=== PATIENT | female | born 1995 | race African-American/Black ===

== ENCOUNTER 2017-01-10 13:30 | Emergency (ER) | payer MEDICAID ==
[~2017-01-10] VITALS: Ht 157.5 cm; Wt 90.0 kg
[~2017-01-10 13:30] MED LIST: AVIATAB PO; FLUC150T PO; METR-1 PO; TERC.4%V VAGINAL
[2017-01-10 13:32] VITALS: BP 128/74; PULSE 106; RESP 14; TEMP 98.4; O2SAT 99
[2017-01-10] MEDS ORDERED: SODIUM CHLOR 0.9% 1000 ML INJ 1,000 ML IV ONE (16:32)
--- NOTE | 2017-01-10 16:40 | PD ---
HPI Chief Complaint: Related Problem Time Seen by Provider: 16:22 Travel History International Travel<30 days: No Contact w/Intl Traveler<30days: No Traveled to known affect area: No History of Present Illness HPI 21-year-old female who is currently 13 weeks presents to emergency department for evaluation of vaginal bleeding and abdominal cramping since last night. Patient describes the bleeding as "spotting" which has resolved since last night. She reports abdominal pain as "cramping" which has since resolved. Patient is followed by B[facility]AGE MAK[facility] Dr. Mancilla on Tuesday she had an ultrasound confirming IUP dating 13 weeks. [facility] Past Medical History Medical History: Denies Significant Hx Hx Anticoagulant Therapy: No Cancer: No Cardiovascular Problems: No Chemotherapy: No Cerebrovascular Accident: No Diabetes: No Glaucoma: No Hepatitis: No Hiatal Hernia: No Hypertension: No Respiratory: No Immunizations Current: Yes Thyroid Disease: No ?: LMP: 08/03/2016 Past Surgical History Hysterectomy: No Pacemaker: No Tonsillectomy: Yes (2009) Other Surgery: No Social History Alcohol Use: No Tobacco Use: No Substance Use: No Allergies-Medications (Allergen,Severity, Reaction): Coded Allergies: No Known Allergies (Unverified , 07/19/16) Reported Meds & Prescriptions Reported Meds & Active Scripts Active Fluconazole 150 Mg Tab 150 Mg PO ONCE Terazol 7 Vaginal Cream (Terconazole Vaginal Cream) 0.4 % Cream 1 Appl VAGINAL HS 1 applicatorful intravaginally x 7 nights Aviane (Levonorgestrel-Ethinyl Estradiol) 0.1-20 Mg-Mcg Tab 1 Tab PO DAILY Flagyl (Metronidazole) 500 Mg Tab 500 Mg PO BID Review of Systems Except as stated in HPI: all other systems reviewed are Neg General / Constitutional: No: Fever Eyes: No: Visual changes HENT: No: Headaches Cardiovascular: No: Chest Pain or Discomfort Respiratory: No: Shortness of Breath Physical Exam Narrative GENERAL: Alert, well-appearing female in no acute distress. Patient resting comfortably on stretcher requesting something to eat. SKIN: Focused skin assessment warm/dry. HEAD: Atraumatic. Normocephalic. EYES: Pupils equal and round. No scleral icterus. No injection or drainage. ENT: No nasal bleeding or discharge. Mucous membranes pink and moist. NECK: Trachea midline. No JVD. CARDIOVASCULAR: Regular rate and rhythm. No murmur appreciated. RESPIRATORY: No accessory muscle use. Clear to auscultation. Breath sounds equal bilaterally. GASTROINTESTINAL: Abdomen soft, non-tender, nondistended. Hepatic and splenic margins not palpable. MUSCULOSKELETAL: No obvious deformities. No clubbing. No cyanosis. No edema. : External genitalia without lesions. cottage cheese like discharge within the vault. cerivcal os closed. No bleeding or clots. NEUROLOGICAL: Awake and alert. No obvious cranial nerve deficits. Motor grossly within normal limits. Normal speech. PSYCHIATRIC: Appropriate mood and affect; insight and judgment normal. Data Data Last Documented VS Vital Signs Date Time Temp Pulse Resp B/P (MAP) Pulse Ox O2 Delivery O2 Flow Rate FiO2 01/10/17 13:32 98.4 106 14 128/74 (92) 99 Orders Orders Sodium Chlor 0.9% 1000 Ml Inj (Ns 1000 M (01/10/17 16:32) Ondansetron Inj (Zofran Inj) (01/10/17 16:45) Urinalysis - C+S If Indicated (01/10/17 17:39) Wet Prep Profile (01/10/17 17:39) Labs Laboratory Tests Test 01/10/17 17:10 01/10/17 17:45 Urine Color YELLOW Urine Turbidity HAZY Urine pH 5.5 Urine Specific [place] 1.016 Urine Protein NEG mg/dL Urine Glucose (UA) NEG mg/dL Urine Ketones NEG mg/dL Urine Occult Blood NEG Urine Nitrite NEG Urine Bilirubin NEG Urine Urobilinogen LESS THAN 2.0 MG/DL Urine Leukocyte Esterase SMALL Urine RBC 1 /hpf Urine WBC 4 /hpf Urine Squamous Epithelial Cells 1 /hpf Urine Bacteria FEW /hpf Urine Mucus FEW /lpf Microscopic Urinalysis Comment CULT NOT INDICATED Clue Cells (Wet Prep) NONE SEEN Vaginal Trichomonas (Wet Prep) NONE SEEN Vaginal Yeast (Wet Prep) NONE SEEN MDM Medical Decision Making Medical Screen Exam Complete: Yes Emergency Medical Condition: Yes Differential Diagnosis Threatened , missed , vaginal bleeding in , cervicitis , vaginal candidiasis Narrative Course 21 year old female here for evaluation of mild vaginal bleeding & cramping last night. Patient reports symptoms have resolved but she was urged by her partner to seek evaluation today. On exam patient's abdomen is soft and nontender. Pelvic exam was performed which small amount of white discharge within the vaginal vault. Cervical os is closed without bleeding or clots. UA: Positive bacteria Wet prep: Negative for Trichomonas, clue cells, yeast heart tones: Bedside ultrasound performed by MAJO Escobar with heart tone of 148. Patient be treated for bacteriuria in with Macrobid. She was advised on pelvic rest. She was advised to follow-up with her [facility]AGE [facility]ER this week. Diagnosis Primary Impression: Asymptomatic bacteriuria during Additional Impression: Vaginal bleeding in Referrals: Wheel Cleaner Additional Instructions: Take the antibiotics as prescribed. Pelvic rest which includes no vaginal intercourse. Follow-up with your B[facility]AGE [facility]ER this week. Return to emergency department if he developed new or worsening symptoms. Scripts Nitrofurantoin Monohydrate Macrocrystals (Macrobid) 100 Mg Cap 100 MG PO BID for Infection for 5 Days, #10 CAP 0 Refills Prov: Diamante Pickett 01/10/17 Disposition: 01 DISCHARGE HOME Condition: Stable Diamante Pickett Jan 10, 2017 16:40
[2017-01-10] MEDS ORDERED: ONDANSETRON HCL 4 MG/2 ML VIAL IVP ONE (16:45)
[2017-01-10 17:59] LABS: BACTERIA, URINE FEW /hpf; BLOOD, URINE NEG (NEG); COMMENT (UR) CULT NOT INDICATED; CULTURE IF INDICATED CULT NOT INDICATED; GLUCOSE,URINE NEG (NEG); KETONE, URINE NEG (NEG); MUCUS URINE FEW /lpf (OCC); NITRITE,URINE NEG (NEG); PH, URINE 5.5 (5.0-8.5); SQUAMOUS EPITHELIAL CELL URINE 1 /hpf (0-5); URINE COLOR YELLOW (YELLW/STRAW)
--- NOTE | 2017-01-10 18:43 | PD ---
Data Data Last Documented VS Vital Signs Date Time Temp Pulse Resp B/P (MAP) Pulse Ox O2 Delivery O2 Flow Rate FiO2 01/10/17 13:32 98.4 106 14 128/74 (92) 99 Orders Orders Sodium Chlor 0.9% 1000 Ml Inj (Ns 1000 M (01/10/17 16:32) Ondansetron Inj (Zofran Inj) (01/10/17 16:45) Urinalysis - C+S If Indicated (01/10/17 17:39) Wet Prep Profile (01/10/17 17:39) Labs Laboratory Tests Test 01/10/17 17:10 01/10/17 17:45 Urine Color YELLOW Urine Turbidity HAZY Urine pH 5.5 Urine Specific [place] 1.016 Urine Protein NEG mg/dL Urine Glucose (UA) NEG mg/dL Urine Ketones NEG mg/dL Urine Occult Blood NEG Urine Nitrite NEG Urine Bilirubin NEG Urine Urobilinogen LESS THAN 2.0 MG/DL Urine Leukocyte Esterase SMALL Urine RBC 1 /hpf Urine WBC 4 /hpf Urine Squamous Epithelial Cells 1 /hpf Urine Bacteria FEW /hpf Urine Mucus FEW /lpf Microscopic Urinalysis Comment CULT NOT INDICATED Clue Cells (Wet Prep) NONE SEEN Vaginal Trichomonas (Wet Prep) NONE SEEN Vaginal Yeast (Wet Prep) NONE SEEN MDM Supervised Visit with LIA: Yes Narrative Course I, Dr. Herrera, have reviewed the advance practice practitioner's documentation and am in agreement, met with the patient face to face, made the diagnosis, and the medical decision making was done by me. See her note for further details. Bedside transabdominal ultrasound was performed by me and shows an IUP with a heart rate of 148 bpm. Procedures Procedure Narrative Bedside transabdominal ultrasound: Using the curvilinear ultrasound probe, a bedside ultrasound was performed by me and shows an IUP with a heart rate of 148 bpm. Diagnosis Primary Impression: Asymptomatic bacteriuria during Additional Impression: Vaginal bleeding in Referrals: Outside Sales Engineer Disposition: 01 DISCHARGE HOME Condition: Stable Harpreet Herrera MD Jan 10, 2017 18:43
[2017-01-10] MEDS ORDERED: MACR100C2 PO (18:46)
== END 2017-01-10 19:08 | disposition home or self-care (01) ==
LOC: NEPD 13:30
DX: R82.71 Bacteriuria (principal); O20.9 Hemorrhage in early pregnancy, unspecified; R10.9 Unspecified abdominal pain; Z3A.13 13 weeks gestation of pregnancy
CPT/HCPCS: 81001; 87210; 99284

== ENCOUNTER → 2017-02-16 | Outpatient (CLI) | payer MEDICAID ==
[~2017-02-16] MED LIST changes: +MACR100C2 PO
== END ==
LOC: HPND 10:45
PROVIDERS: ATTEND Obstetrics & Gynecology
DX: O99.012 Anemia complicating pregnancy, second trimester (principal); O09.212 Supervision of pregnancy with history of pre-term labor, second trimester; O10.912 Unspecified pre-existing hypertension complicating pregnancy, second trimester
CPT/HCPCS: 76811

== ENCOUNTER → 2017-03-04 | Outpatient (CLI) | payer MEDICAID | LOC: HPND 08:07 | PROVIDERS: ATTEND Obstetrics & Gynecology | DX: O09.212 Supervision of pregnancy with history of pre-term labor, second trimester (principal); O10.912 Unspecified pre-existing hypertension complicating pregnancy, second trimester | CPT/HCPCS: 76815; 76817 ==

== ENCOUNTER → 2017-03-18 | Outpatient (CLI) | payer MEDICAID | LOC: HPND 10:06 | PROVIDERS: ATTEND Obstetrics & Gynecology | DX: O10.912 Unspecified pre-existing hypertension complicating pregnancy, second trimester (principal); O09.212 Supervision of pregnancy with history of pre-term labor, second trimester; Z3A.00 Weeks of gestation of pregnancy not specified | CPT/HCPCS: 76816; 76817 ==